=== PATIENT | male | born 1970 | race Caucasian/White ===

== ENCOUNTER 2017-08-05 09:50 | Emergency (ER) | payer MEDICAID ==
[~2017-08-05] VITALS: Ht 152.4 cm; Wt 82.0 kg
[2017-08-05 12:16] VITALS: BP 142/98
[2017-08-05] MEDS ORDERED: LORAZEPAM 1MG TABLET PO ONE (12:30)
[2017-08-05] MEDS ORDERED: PROMETHAZINE HCL 25MG TABLET PO PRN ×2 (12:30→13:45)
[2017-08-05] MEDS ORDERED: ONDANSETRON HCL 4MG TABLET PO ONE (12:45)
== END 2017-08-05 14:29 | disposition home or self-care (01) ==
LOC: ER 11:19
DX: R42 Dizziness and giddiness (principal); H93.13 Tinnitus, bilateral
CPT/HCPCS: 99283; Q0162